=== PATIENT | male | born 1985 | race Caucasian/White ===

== ENCOUNTER → 2017-07-29 | Outpatient (CLI) | payer OTHER ==
[~2017-07-29] MED LIST: FLONASE 50 MCG16 GM; TESSALON PERLE100 MG PO; XYZAL5 MG PO; ZITHROMAX Z PA250 MG PO
--- NOTE | 2017-07-29 10:40 | RADIOLOGY REPORT PS360 ---
EXAM: LUMBAR SPINE 5 VIEWS HISTORY: Bilateral low back pain BILATERAL SCIATICA, LUMAR NEURALGIA ORDERING PHYSICIAN: Luis Cuevas MD PATIENT AGE: 32 years COMPARISON: None FINDINGS: Normal alignment. No fracture or dislocation. No lytic or blastic change. There is minimal lumbar curvature convex left nonspecific. There is some decrease in the L5-S1 disc space suggesting degenerative disc disease at that level. IMPRESSION: Mild degenerative disc disease L5-S1
== END ==
LOC: RAD 10:01
DX: M54.31 Sciatica, right side (principal); M54.32 Sciatica, left side; M54.16 Radiculopathy, lumbar region

== ENCOUNTER → 2017-07-31 | Outpatient (CLI) | payer OTHER ==
--- NOTE | 2017-07-31 11:53 | RADIOLOGY REPORT PS360 ---
ORBIT HISTORY: RULE OUT METAL FOREIGN BODY FOR MRI Patient Age: 32 years: Male Ordering Physician: Luis Cuevas MD TECHNIQUE: 2 views Allen' view orbits both looking up and looking down views COMPARISON :None available FINDINGS No evidence of radiopaque foreign body in either orbit. Patient cleared for MRI. The frontal & maxillary sinuses are clear and unremarkable. IMPRESSION: . No evidence radiopaque foreign body either orbit. Patient cleared for MRI
--- NOTE | 2017-07-31 12:04 | RADIOLOGY REPORT PS360 ---
MRI-L-SPINE W/O, MRI-3D RENDERING/MYELOGRAM HISTORY: SCIATICA, LEFT AND RIGHT SIDE, LUMBAR NEURALGIA bilateral leg pain numbness and tingling worse on left. Symptoms 3 days Patient Age: 32 years: Male Ordering Physician: Luis Cuevas MD TECHNIQUE: Sagittal STIR, T1, T2, axial T1 and T2. On 1.5T Siemens wide bore MRI. 3-D MR myelogram image set obtained & performed on MRI workstation. Additional sagittal thin section T2 weighted dataset obtained from this latter acquisition as well (---76 CPT) COMPARISON :Plain films lumbar spine 07/29/2017 FINDINGS The lumbar vertebral bodies are intact with no compression fracture nor lesion. L5/S1: Mild degenerative disc desiccation & disc space narrowing .. Mild reactive endplate changes inferior L5 centrally, associated with a Schmorl's node.. Mild diffuse disc bulge w/ slight additional focal bulge or early protrusion just at entry of left neural foramen. Yields mildly encroach upon the left lateral recess & entry of left foramen.. No discrete disc extrusion or disc herniation. Scant facet prominence L4/5. Mild degenerative disc changes with scant eccentric disc bulge slightly more evident to the left of midline (this does efface the thecal sac and & may displace left L5 nerve roots. Scant posterior element prominence The remaining disc above this appear intact and the neural foramen otherwise unremarkable at all above remaining levels. Conus ends appropriately at L1 1/L2. 3-D MR myelogram image set shows no prominent findings with some very slight anterior indentation upon the thecal sac at L4/5 to the left. IMPRESSION L4/5. Mild disc bulge most evident to the left of midline This disc bulge mildly indents the thecal sac mainly to the left & may slightly displace L5 nerve root L5/S1. Narrowed degenerated disc with mild disc bulge. Slight additional focal bulge/( possible very early early disc protrusion) to the left mildly encroaches upon entry to the left foramen.
== END ==
LOC: RAD 09:07
DX: M54.31 Sciatica, right side (principal); M54.32 Sciatica, left side; M54.16 Radiculopathy, lumbar region; H05.53 Retained (old) foreign body following penetrating wound of bilateral orbits